=== PATIENT | female | born 1935 | race Caucasian/White ===

== ENCOUNTER 2017-04-25 14:51 | Emergency (ER) | payer MEDICARE, OTHER ==
--- NOTE | 2017-04-25 15:41 | CT ---
CT OF BRAIN PERFORMED WITHOUT CONTRAST ENHANCEMENT: 04/25/17 HISTORY: Altered mental status. Generalized ventricular and sulcal prominence with decreased attenuation of the periventricular white matter consistent with some chronic white matter change. There is no signs of intracerebral hemorrha ge or extra-axial fluid collections. Mastoid air cells and visualized sinuses are clear. IMPRESSION: No acute intracranial abnormalities. POS: [facility]
[2017-04-25 16:05] LABS: #Eosinphils 0.1 thou/uL (0.0-0.7); #Lymphocytes 0.4 thou/uL (1.20-3.40); #Monocytes 0.6 thou/uL (0.11-0.59); #Neutrophils 3.4 thou/uL (1.40-6.50); %Eosinophils 1.9 % (0.0-10.0); %Lymphocytes 9.2 % (21.0-51.0); %Monocytes 12.5 % (0.0-10.0); Hematocrit 43.8 % (36.0-47.0); Mean Platelet Volume 8.4 fL (7.4-10.4); Red Blood Cell (RBC) Count 4.32 mill/uL (4.20-5.40); White Blood Cell (WBC) Count 4.4 thou/uL (4.8-10.8)
[2017-04-25 16:27] LABS: ALT (SGPT) 23 U/L (8-55); AST (SGOT) 21 U/L (5-34); Alkaline Phosphatase 51 U/L (40-150); Anion Gap 11 mmol/L (10-20); BUN (Urea Nitrogen) 16 mg/dL (9.8-20.1); Bilirubin, Total 0.3 mg/dL (0.2-1.2); Calc. Creatinine Clearance 0 mL/min (70-130); Calcium 9.5 mg/dL (7.8-10.44); Carbon Dioxide 29 mmol/L (23-31); Chloride 103 mmol/L (98-107); Estimated GFR-MDRD 76; Globulin 2.6 g/dL (2.4-3.5); Protein, Total 6.6 g/dL (6.0-8.3)
[2017-04-25 16:31] LABS: Troponin I Less than 0.010 ng/mL (< 0.028)
[2017-04-25 16:56] LABS: Bilirubin Negative (Negative); Blood, Urine Negative (Negative); Glucose, Urine (Dipstick) Negative (Negative); Ketone, Urine Negative (Negative); Nitrite Negative (Negative); Protein, Urine (Dipstick) Negative (Neg-Trace)
== END 2017-04-25 18:06 | disposition home or self-care (01) ==
LOC: ERS 14:51
DX: R41.82 Altered mental status, unspecified (principal); E78.5 Hyperlipidemia, unspecified; F32.9 Major depressive disorder, single episode, unspecified; F41.9 Anxiety disorder, unspecified; G30.9 Alzheimer's disease, unspecified; F02.80 Dementia in other diseases classified elsewhere, unspecified severity, without behavioral disturbance, psychotic disturbance, mood disturbance, and anxiety; K21.9 Gastro-esophageal reflux disease without esophagitis
CPT/HCPCS: 51701; 70450; 80053; 81003; 82553; 84484; 85025; 93005; A4353

== ENCOUNTER 2017-10-10 22:09 | Inpatient (IN) | payer MEDICARE, OTHER ==
[2017-10-10 22:56] LABS: #Lymphocytes 0.5 thou/uL (1.20-3.40); #Monocytes 0.7 thou/uL (0.11-0.59); #Neutrophils 8.1 thou/uL (1.40-6.50); %Basophils 0.1 % (0.0-1.0); %Eosinophils 0.3 % (0.0-10.0); %Lymphocytes 5.4 % (21.0-51.0); %Monocytes 7.5 % (0.0-10.0); %Neutrophils 86.8 % (42.0-75.0); Hemoglobin 12.4 g/dL (12.0-16.0); Mean Corpuscular Hemoglobin 32.1 pg (27.0-31.0); Mean Corpuscular Volume 97.2 fl (81.0-99.0); Mean Platelet Volume 7.4 fL (7.4-10.4); Platelet Count 203 thou/uL (130-400); Red Blood Cell (RBC) Count 3.86 mill/uL (4.20-5.40); White Blood Cell (WBC) Count 9.4 thou/uL (4.8-10.8)
[2017-10-10 23:02] LABS: PTT 27.6 SEC (22.9-36.1); Prothrombin Time 13.5 SEC (12.0-14.7)
[2017-10-10 23:15] LABS: ALT (SGPT) Less than 7 U/L (8-55); AST (SGOT) 16 U/L (5-34); Albumin 3.3 g/dL (3.4-4.8); Alkaline Phosphatase 58 U/L (40-150); Anion Gap 13 mmol/L (10-20); BUN (Urea Nitrogen) 19 mg/dL (9.8-20.1); Bilirubin, Total 0.4 mg/dL (0.2-1.2); Calc. Creatinine Clearance 0 mL/min (70-130); Calcium 8.8 mg/dL (7.8-10.44); Carbon Dioxide 27 mmol/L (23-31); Chloride 104 mmol/L (98-107); Estimated GFR-MDRD 82; Globulin 2.3 g/dL (2.4-3.5); Glucose 143 mg/dL (83-110); Potassium 3.8 mmol/L (3.5-5.1); Protein, Total 5.6 g/dL (6.0-8.3); Sodium 140 mmol/L (136-145)
--- NOTE | 2017-10-10 23:18 | RAD ---
TWO VIEWS RIGHT HIP: 10/10/17 HISTORY: Found on ground. Pain. Evaluate for possible fracture. COMPARISON: None. FINDINGS: Two views of the right hip demonstrate foreshortening and persistent rotation suggesting a fracture. IMPRESSION: Probable right hip fracture. POS: [facility]
--- NOTE | 2017-10-10 23:23 | CT ---
HEAD CT WITHOUT CONTRAST: 10/10/17 COMPARISON: 04/25/17. HISTORY: Fall. Pain. Evaluate for fracture. TECHNIQUE: Noncontrast head CT is performed from skull base to skull vertex. FINDINGS: No parenchymal hemorrhage. No extra-axial hematoma. No midline shift. Basilar cisterns are patent. Ag e appropriate atrophy. Cortical bailey-white matter differentiation is preserved. Prominence of ventricular system is in keeping with the overall degree of atrophy. Chronic small vess el ischemic change are identified. Remote insult to the medial aspect of the right occipital lobe is noted with resultant malacic change, similar to the previous examination. Calvarium is intact. Adequate aeration of the sinuses and mastoid air cells. Probable arachnoid cyst in the anterior aspect of the left middle cranial fossa, unchanged. IMPRESSION: 1. Age appropriate atrophy. Chronic small vessel ischemic change of the white matter. 2. No intracranial posttraumatic sequela. POS: [facility]
--- NOTE | 2017-10-10 23:30 | CT ---
CT CERVICAL SPINE WITHOUT CONTRAST 10/10/17 HISTORY: Fall. Pain. COMPARISON: None. TECHNIQUE: CT cervical spine is performed without contrast. Reformatted images are submitted for interpretation. FINDINGS: There is no prevertebral soft tissue swelling. No epidural hematoma. There are varying degrees of jose tral canal stenosis and foraminal narrowing on the basis of degenerative change. There is a hypodens ity with a punctate calcification that is in the right subarticular zone. This lesion (5 mm) appears to be extradural in location and may represent a small focus of disc material. Evaluation is limited on this exam. The possibility of a small meningioma cannot be excluded given the presence of calcific ation. Mildly heterogeneous thyroid gland is noted. Upper mediastinum and lung apices are unremarkable. Lateral masses of C1 and C2 articular appropriately. Appropriate articulation of the facets. Odontoid process is intact. There is anterolisthesis of C3 upon C4, C4 upon C5 which is felt to be due to degenerative change. Th ere is fusion of the facets on the right at C2 and C3, likely chronic. Cervical spine vertebral body height is maintained. There is no fracture. IMPRESSION: 1. No cervical spine fracture. 2. Varying degrees of foraminal stenosis due to degenerative change. Evaluation is limited by melita webber. At the C5-C6 level, there is a hypodensity with punctate calcifications of the right subarti cular zone. Differential considerations include a disc fragment versus a partially calcified epidural meningioma. Better interrogation with nonemergent cervical spine MRI is recommended. 3. No evidence of cervical spine fracture. POS: [facility]
--- NOTE | 2017-10-10 23:32 | CT ---
RIGHT SHOULDER CT WITHOUT CONTRAST: 10/10/17 HISTORY: Fall. Fracture. COMPARISON: None. FINDINGS: There is a mildly displaced fracture involving the greater tuberosity of the right shoulder. Degenera tive change with osteophyte formation along the articular surface of the humeral head is noted. No ev idence of dislocation. Scaphoid bone appears to be intact. The visualized right ribs are intact. The visualized right hemithorax is also unremarkable. IMPRESSION: Fracture involving the proximal right humerus without evidence of glenohumeral dislocation. POS: [facility]
[2017-10-11] MEDS ORDERED: Dextrose 50% Abboject 50 ML SYRINGE SLOW IVP PRN (01:20)
[2017-10-11] MEDS ORDERED: Ondansetron HCl/PF 4 MG/2 ML Vial IVP PRN ×2 (01:20→11:24)
[2017-10-11] MEDS ORDERED: Ondansetron ODT 4 MG TAB PO PRN (01:20)
[2017-10-11] MEDS ORDERED: Dextrose 5% in Water 1,000 ML IV PRN (01:20)
[2017-10-11] MEDS ORDERED: hydrALAZINE 20 MG/ML VIAL SLOW IVP PRN (01:20)
[2017-10-11] MEDS: Acetaminophen 1,000 MG in Premix Bag 1 BAG IVPB SCH ×4 (03:42→21:10)
[2017-10-11] MEDS: Ketorolac Tromethamine 30 MG/ML VIAL IVP SCH ×4 (03:42→21:11)
[2017-10-11] MEDS: Sodium Chloride 0.9% 1,000 ML IV SCH ×4 (03:43→22:39)
--- NOTE | 2017-10-11 04:42 | HP ---
DATE OF ADMISSION: 10/11/2017 REQUESTING PHYSICIAN: Clayton Montemayor MD ATTENDING SURGEON: Antoni Hernandez M.D. CONSULTATIONS: Orthopedics, Dr. Harris. HISTORY OF PRESENT ILLNESS: The patient is an 82-year-old, woman, who resides at a nursing facility specifically facility for dementia patients in [place]. She reportedly fell sometime toda y. Nursing staff was able to obtain x-rays that showed a proximal humerus fracture on the right, and a right subcapital proximal femur fracture. They were able to re-transportation from their facility to our facility where she underwent evaluation and examination and noted to have these injuries, at which time, we were asked to admit the patient and obtain orthopedic consultation. There is no repor ellen loss of consciousness, though the history from the patient is very scattered and not very reliabl e, the daughter who is at bedside says that she was told that the patient did not hit her head or los e consciousness. Daughter states that the patient normally ambulates without a walker. She will amb ulate the hallways holding onto the side rail, but she has noticed that her gait has changed over the past few months. ALLERGIES: BONIVA and LIPITOR. CURRENT MEDICATIONS: Tylenol, Aricept, Cymbalta, Namenda, Risperdal, vitamin B, vitamin D, Zetia, ra nitidine, loperamide, Zofran, and simethicone. PAST MEDICAL HISTORY: Significant for gastroesophageal reflux disease, hyperlipidemia, and Alzheimer 's disease, also anxiety and depression. PAST SURGICAL HISTORY: Colon polyp removal. SOCIAL HISTORY: Daughter states that the patient does not use tobacco, alcohol or drugs. She reside s in a nursing facility. REVIEW OF SYSTEMS: A 10-point review of system is negative, unless otherwise stated. PHYSICAL EXAMINATION: VITAL SIGNS: Blood pressure 92/56, heart rate 72, respirations 16, oxygen saturation 93% on room air , and temperature is 98.7. GENERAL: The patient is resting comfortably in bed. She will respond to verbal stimuli. She is cur rently oriented to person only. The daughter states this is her baseline, though sometimes she is fa irly confusing, will not even recognize her. Warner coma scale is E3 V4 M6. HEENT: Head is normocephalic, atraumatic. Eyes: Extraocular motion intact. PERRLA bilaterally. L eft pupil appears to be somewhat more dilated than the right. Again, the daughter believes that this is a chronic condition. Ears are atraumatic without discharge. Nose atraumatic without discharge. Oropharynx is clear. NECK: Nontender. Trachea is midline. No JVD. CHEST: Clear to auscultation with moderate inspiratory and expiratory effort. HEART: Regular rate and rhythm. ABDOMEN: Soft, flat, nontender with active bowel sounds. Pelvis is stable with tender to palpation to her right hip consistent with her fracture. EXTREMITIES: Tenderness to palpation in the right shoulder, again consistent with her fracture. She is neurovascularly intact x4 distally in all extremities. Her pulses are 2+. Capillary refill is l ess than 3 seconds. LABORATORY DATA: White blood cell count 9.4, hemoglobin 12.4, hematocrit 37.5, platelets 203. Sodiu m 140, potassium 3.8, CO2 of 27, BUN 19, creatinine 0.68, glucose 143. LFTs are unremarkable. PT 14 , PTT 28, INR 1.0. RADIOGRAPHIC FINDINGS: CT of the brain without contrast shows no intracranial post-traumatic sequela . CT of the C-spine shows no cervical spine fractures. CT of the right upper extremity shows a frac ture involving the right proximal humerus without evidence of glenohumeral dislocation. Specifically , there is a mildly displaced fracture fragment involving the greater tuberosity. Radiographs of the right hip show probable right hip fracture. ASSESSMENT: 1. Status post fall. 2. Right proximal humerus fracture. 3. Right proximal femur fracture. 4. Alzheimer's/dementia. 5. Pain secondary to trauma. PLAN: Plan will be to admit the patient to the surgical floor, make the patient n.p.o. after midnigh t, and await surgical evaluation by Orthopedics in the morning. The evaluation, examination, laborat ory, and radiographic findings will be discussed with Dr. Hernandez after this dictation.
[2017-10-11 05:10] LABS: #Eosinphils 0.2 thou/uL (0.0-0.7); #Lymphocytes 0.8 thou/uL (1.20-3.40); #Monocytes 0.9 thou/uL (0.11-0.59); #Neutrophils 7.9 thou/uL (1.40-6.50); %Basophils 0.1 % (0.0-1.0); %Eosinophils 2.4 % (0.0-10.0); %Lymphocytes 8.3 % (21.0-51.0); %Monocytes 9.1 % (0.0-10.0); %Neutrophils 80.2 % (42.0-75.0); Hemoglobin 12.6 g/dL (12.0-16.0); Mean Corpuscular HGB CONC 33.1 g/dL (32.0-36.0); Mean Corpuscular Hemoglobin 32.4 pg (27.0-31.0); Mean Corpuscular Volume 97.8 fl (81.0-99.0); Mean Platelet Volume 8.3 fL (7.4-10.4); Platelet Count 137 thou/uL (130-400); RBC Distribution Width 12.2 % (11.5-14.5); Red Blood Cell (RBC) Count 3.89 mill/uL (4.20-5.40); White Blood Cell (WBC) Count 9.8 thou/uL (4.8-10.8)
[2017-10-11 05:24] LABS: Anion Gap 13 mmol/L (10-20); BUN (Urea Nitrogen) 16 mg/dL (9.8-20.1); Calc. Creatinine Clearance 51 mL/min (70-130); Calcium 8.4 mg/dL (7.8-10.44); Carbon Dioxide 22 mmol/L (23-31); Chloride 108 mmol/L (98-107); Estimated GFR-MDRD Greater than 90; Glucose 106 mg/dL (83-110); Potassium 4.5 mmol/L (3.5-5.1); Sodium 138 mmol/L (136-145)
[2017-10-11] MEDS ORDERED: CEFAZOLIN/Water 2 GM/20 ML SYRINGE SLOW IVP SCH (06:30)
--- NOTE | 2017-10-11 08:07 | RAD ---
RIGHT SHOULDER 3 VIEWS: Date: 10/11/17 HISTORY: Right shoulder pain. FINDINGS/IMPRESSION: There is a fracture involving the greater tuberosity of the right humerus without significant displac ement. POS: [facility]
[2017-10-11] MEDS: Famotidine 20 MG TAB PO SCH ×2 (08:36→22:00)
--- NOTE | 2017-10-11 08:48 | CON ---
DATE OF CONSULTATION: 10/11/2017 HISTORY OF PRESENT ILLNESS: We were asked by ER and Trauma to see the patient. Patient is a [age]-year-old female who resides in a nursing facility. Unfortunately, she has significant Alzheimer an d dementia that has recently more so started to affect her gait. She fell sometime yesterday and was brought into the hospital last night, found to have a right proximal femur fracture, very well align ed. The patient is quite somnolent and unable to give much information or history. She had a restfu l night per daughter who is at the bedside and she was also giving this patient's history. The patie nt currently is resting in bed in no acute distress. Nurses stated she does speak and in oriented fa shion. PAST MEDICAL HISTORY: Positive for GERD, Alzheimer, dementia. Family says she has some anxiety and depression. It is worsened with the disease also. PAST SURGICAL HISTORY: Colon polyp. SOCIAL HISTORY: Resides in a fpc facility in [place], good family involvement. No alco hol or nicotine products. ALLERGIES: BONIVA and LIPITOR. CURRENT MEDICATIONS: Acetaminophen, Aricept, Cymbalta, Namenda, Risperdal, vitamin B complex, vitami n D3, Zetia, ranitidine, BioFreeze topical , loperamide, Zofran and simethicone. REVIEW OF SYSTEMS: Unobtainable due to patient's mentation. PHYSICAL EXAMINATION: GENERAL: Female, resting in bed in no acute distress. Very thin. HEENT: Face is symmetric. NECK: Supple, trachea midline. LOWER EXTREMITIES: Pulses intact. Good cap refill. ASSESSMENT: 1. Fall due to either off balance or dementia, Alzheimer's. 2. Right proximal femur fracture. PLAN: I spoke with daughter. She is amenable to go forth with surgery, as it has been explained, it will be percutaneous screws fixation. 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 We discussed x-rays, postop care. She will be with us through the weekend d efinitely and then we will probably need to get back to her skilled facility. We will get the case m anagement involved and then physical therapy, occupational therapy post-surgical procedure. This is Clayton Damon PA-C dictating for Dr. Jorgito Harris.
[2017-10-11] MEDS ORDERED: Prevnar 13-Val Conj/PF 0.5 ML SYRINGE IM ONE (09:00)
[2017-10-11] MEDS ORDERED: Fentanyl 100 MCG/2 ML VIAL ONE (10:10)
[2017-10-11] MEDS ORDERED: CEFAZOLIN/Water 2 GM/20 ML SYRINGE ONE (10:14)
[2017-10-11] MEDS ORDERED: Preparation H Ointment 28 GM TUBE PR PRN (10:41)
[2017-10-11] MEDS ORDERED: Simethicone Chewable 80 MG TAB PO PRN (10:41)
[2017-10-11] MEDS ORDERED: MENTHOL TOP PRN (10:41)
[2017-10-11] MEDS ORDERED: Loperamide HCl 2 MG CAP PO PRN (10:54)
--- NOTE | 2017-10-11 11:47 | OP ---
DATE OF PROCEDURE: 10/11/2017 PROCEDURE PERFORMED: Right femoral neck fracture, percutaneous screw fixation. PREOPERATIVE DIAGNOSIS: Nondisplaced femoral neck fracture. POSTOPERATIVE DIAGNOSIS: Nondisplaced femoral neck fracture. COMPLICATIONS: None. ESTIMATED BLOOD LOSS: Minimal. SURGEON: Wil Tipton M.D. ANESTHESIA: General. INDICATIONS: Ms. Kelly is an elderly female who fell. She sustained a valgus impacted femoral neck fracture. She was indicated for percutaneous screw fixation to provide stability and allow mobiliza tion. Goal of surgery is to promote early mobilization and prevent complications of prolonged bed re st. Risks have been reviewed in detail. The patient and her family have elected to proceed with the operation. IMPLANTS: Synthes 7.3 mm cannulated screws x3. DESCRIPTION OF PROCEDURE: Ms. Albrecht was identified in the preoperative holding area. Her correct extremity was marked. She was carried to the operating room. She was positioned supine. General an esthesia was induced. A multidisciplinary timeout was performed. The right lower extremity was prep ped and draped in sterile fashion. We began the procedure with intraoperative evaluation of the femoral neck fracture. We pulled gentle traction. At this point, we prepped and draped the right lower extremity. We then made a small inc ision over the lateral femur. We dissected down through the subcutaneous tissues. A guidewire was t hen introduced using intraoperative x-ray in the inferior position of the femoral neck. This was skyler margie using orthogonal views. We then placed 2 additional guidewires in an inverted triangle pattern. At this point, we overdrilled our guidewires and measured length. We then placed 7.3 mm cannulated screws appropriately. These were imaged. We irrigated and then closed with 2-0 Vicryl suture follow ed by giselle for the skin. A sterile dressing was applied.
[2017-10-11 13:22] LABS: Bilirubin Negative (Negative); Blood, Urine Moderate (Negative); Clarity CLEAR (Clear); Glucose, Urine (Dipstick) Negative (Negative); Leukocyte Negative (Negative); Nitrite Negative (Negative); Protein, Urine (Dipstick) Negative (Neg-Trace); Specific Gravity, Urine 1.017 (1.002-1.036); Urobilinogen 0.2 mg/dL (0.2-1.0); pH, Urine 6.5 (5.0-9.0)
[2017-10-11 13:26] LABS: Bacteria/HPF None Seen HPF (None Seen); Hyaline Casts/LPF 0-3 HYALINE CAST LPF (0-3 Hyaline); Pathc Cast-AUWi Flag 0.29 (0-2.49); Squamous Epithelial 0-3 HPF (0-3); WBC/HPF 0-3 HPF (0-3)
[2017-10-11 13:40] VITALS: BMI 18.8
--- NOTE | 2017-10-11 13:49 | RAD ---
INTRAOPERATIVE FLUOROSCOPY: Date: 10/11/17 HISTORY: Open reduction and internal fixation right hip. EXPOSURE: 35.8 seconds. 2.76 mGy*cm^2. FINDINGS: Four intraoperative fluoroscopic views are submitted for interpretation. There are three pins that tr averse the right hip. Irregularity due to fracture is noted. Alignment is near anatomic. IMPRESSION: Fluoroscopy as above. POS: [facility]
[2017-10-11] MEDS ORDERED: Acetaminophen 325 MG TAB PO PRN (16:47)
[2017-10-11] MEDS ORDERED: Glycopyrrolate 0.2 MG/ML 5 ML SYRINGE ONE (17:45)
[2017-10-11] MEDS ORDERED: Lidocaine 1% PF 5 ML VIAL ONE (17:45)
[2017-10-11] MEDS ORDERED: PHENYLEPHRINE-NS 100 MCG/ML 10 ML SYRINGE ONE (17:45)
[2017-10-11] MEDS ORDERED: Ondansetron HCl/PF 4 MG/2 ML Vial ONE (17:45)
[2017-10-11] MEDS ORDERED: PROPOFOL 200 MG/20 ML VIAL ONE (17:45)
[2017-10-11] MEDS ORDERED: ePHEDrine/0.9% NaCl/PF SYRINGE 50 mg/10 ml ONE (17:45)
--- NOTE | 2017-10-11 18:37 | PRG ---
DATE OF SERVICE: 10/11/2017 SUBJECTIVE: The patient is currently on the surgical floor. She is hospital day #2 and recently pos top from a percutaneous screw placement of a right hip fracture. The patient tolerated this procedur e well. There were no reported issues overnight or during the surgery. PHYSICAL EXAMINATION: VITAL SIGNS: Temperature is 96.6, heart rate 59, blood pressure 129/61, respirations 15, oxygen satu ration 96% on room air. GENERAL: The patient is resting comfortably in bed. She appears in no distress. She is currently s leeping. She will respond somewhat to verbal stimuli, though due to her advanced dementia this seem to scare her more than anything. The daughter at bedside reports that when she was awake, she appear ed to be at baseline. She has not eaten yet. HEENT: Unremarkable. LUNGS: Clear to auscultation with moderate inspiratory and expiratory effort. HEART: Regular rate and rhythm. ABDOMEN: Soft, flat, nontender with hypoactive bowel sounds. Postop dressing is clean, dry, and int act. EXTREMITIES: Neurovascularly intact. LABORATORY DATA: White blood cell count 9.8, hemoglobin 12.6, hematocrit 38.0, platelets 137. Sodiu m 138, potassium 4.5, chloride 108, CO2 of 22, BUN 16, creatinine 0.62, glucose 106. There are no ra diographs to review this morning. ASSESSMENT AND PLAN: 1. Status post ground level fall. 2. Right greater tuberosity fracture, right humerus. 3. Right femoral neck fracture, status post percutaneous screw fixation. 4. Alzheimer/dementia. 5. Acute pain secondary to trauma. Plan will be to continue supportive care. Resume home meds, await physical and occupational therapy and placement decision. The patient's daughter reports that she has called and the patient has alrea dy been accepted back to [facility]. The evaluation and examination were done with Dr. Cruz during r ounds this morning.
[2017-10-11] MEDS: Acetaminophen 500 MG TAB PO SCH (21:12)
[2017-10-11] MEDS: Donepezil HCl 10 MG TAB PO SCH (22:00)
[2017-10-11] MEDS: DULoxetine 60 MG CAP PO SCH (22:00)
[2017-10-11] MEDS: Senokot S 8.6-50 MG TAB PO SCH (22:00)
[2017-10-11] MEDS: risperiDONE 0.25 MG TAB PO SCH (22:00)
[2017-10-11] MEDS: Aspirin 81 mg Enteric Coated Tablet PO SCH (22:00)
[2017-10-12] MEDS: Ketorolac Tromethamine 30 MG/ML VIAL IVP SCH (02:39)
[2017-10-12] MEDS: Acetaminophen 1,000 MG in Premix Bag 1 BAG IVPB SCH (02:39)
[2017-10-12] MEDS: Ezetimibe 10 MG TAB PO SCH (08:04)
[2017-10-12] MEDS: Stress 600 With Zinc 1 TAB PO SCH (08:04)
[2017-10-12] MEDS: Senokot S 8.6-50 MG TAB PO SCH ×2 (08:04→21:03)
[2017-10-12] MEDS: Polyethylene Glycol 3350 17 GM Packet PO SCH (08:04)
[2017-10-12] MEDS: Famotidine 20 MG TAB PO SCH ×3 (08:04→21:02)
[2017-10-12] MEDS: Acetaminophen 500 MG TAB PO SCH ×3 (08:05→21:01)
[2017-10-12] MEDS: Aspirin 81 mg Enteric Coated Tablet PO SCH ×2 (08:05→21:02)
[2017-10-12] MEDS ORDERED: FOLIC PO SCH (09:00)
[2017-10-12] MEDS ORDERED: VIT B COMP PO SCH (09:00)
[2017-10-12] MEDS ORDERED: [UNRECOGNIZED DRUG - OTHER] PO SCH (09:00)
[2017-10-12] MEDS ORDERED: VIT E PO SCH (09:00)
[2017-10-12] MEDS ORDERED: IRON PO SCH (09:00)
[2017-10-12] MEDS ORDERED: traMADol HCl 50 MG TAB PO PRN (10:01)
[2017-10-12] MEDS: traMADol HCl 50 MG TAB PO PRN ×2 (11:31→16:56)
--- NOTE | 2017-10-12 12:02 | PRG ---
DATE OF SERVICE: 10/12/2017 ATTENDING PHYSICIAN: Dr. Mike Cruz. SUBJECTIVE: Ms. Albrecht is an 82-year-old female, who had a ground-level fall with subsequent right hip and right humerus fracture. She is postoperative day #1, status post ORIF of the right hip. The humerus fracture will be nonoperative. She is seen on the surgical floor this morning. Pain is wel l controlled. She has started working with physical and occupational therapy. OBJECTIVE: VITAL SIGNS: Temperature 98.3, pulse 67, respirations 14, O2 sat 93% on room air, blood pressure 126 /74. GENERAL: Elderly female lying in bed in no acute distress. HEENT: Contusion and ecchymosis over the lateral aspect of right eyebrow and right temporal area. O therwise, atraumatic and normocephalic. PULMONARY: Bilateral breath sounds clear. No respiratory distress. Chest movement symmetrical. CARDIOVASCULAR: Regular rate and rhythm. Heart sounds normal. ABDOMEN: Soft, flat, nontender, nondistended. Normal bowel sounds. EXTREMITIES: Neurovascularly intact in all extremities. Cap refill brisk in all lower extremities. NEUROLOGIC: GCS is 14, E4 V4 M6. LABORATORY DATA: None. ASSESSMENT: 1. Status post ground-level fall. 2. Right greater tuberosity fracture, right humerus. 3. Right femoral neck fracture, status post percutaneous screw fixation. 4. History of Alzheimer's dementia, present on admission. 5. Acute traumatic pain. PLAN: 1. I will continue mobilizing with physical and occupational therapy. 2. Encourage incentive spirometer. 3. Case management for discharge planning. Referral has been made to [facility]. The patient to be discharged [facility] when their acceptance gained. 4. Continue oral analgesia. The patient was reviewed with Dr. Cruz, who agrees with the plan.
[2017-10-12] MEDS: Ibuprofen 600 MG TAB PO SCH ×2 (15:19→21:03)
[2017-10-12] MEDS: Donepezil HCl 10 MG TAB PO SCH (21:02)
[2017-10-12] MEDS: DULoxetine 60 MG CAP PO SCH (21:02)
[2017-10-12] MEDS: risperiDONE 0.25 MG TAB PO SCH (21:03)
[2017-10-13] MEDS: Acetaminophen 500 MG TAB PO SCH ×4 (02:21→20:52)
[2017-10-13] MEDS: traMADol HCl 50 MG TAB PO PRN (02:21)
[2017-10-13] MEDS: Ibuprofen 600 MG TAB PO SCH ×3 (05:46→20:51)
[2017-10-13] MEDS: Famotidine 20 MG TAB PO SCH ×3 (09:12→20:52)
[2017-10-13] MEDS: Ezetimibe 10 MG TAB PO SCH (09:12)
[2017-10-13] MEDS: Senokot S 8.6-50 MG TAB PO SCH ×2 (09:12→20:53)
[2017-10-13] MEDS: Aspirin 81 mg Enteric Coated Tablet PO SCH ×2 (09:12→20:51)
[2017-10-13] MEDS: Stress 600 With Zinc 1 TAB PO SCH (09:15)
[2017-10-13] MEDS: Polyethylene Glycol 3350 17 GM Packet PO SCH (09:16)
--- NOTE | 2017-10-13 12:07 | PRG ---
DATE OF SERVICE: 10/13/2017 SUBJECTIVE: The patient is status post ground level fall in which she sustained a right hip fracture and right greater tuberosity fracture of her humerus. The patient underwent percutaneous pinning of her hip fracture and she tolerated this well. She does complain of some right shoulder pain, but ot herwise there have been no issues overnight. The daughter states that she had a small amount for [employer] and is at her baseline mentally. OBJECTIVE: VITAL SIGNS: Temperature is 98.6, heart rate 71, blood pressure 147/83, respirations 14, oxygen satu ration 91% on room air. GENERAL: The patient is resting comfortably in bed. She is awake and will respond to verbal stimuli . Also, again appears confused and will have random thoughts, this again appears to be her baseline. She will follow some very simple commands. HEENT: Unremarkable. LUNGS: Clear to auscultation with good inspiratory and expiratory effort. HEART: Regular rate and rhythm. ABDOMEN: Soft, flat, nontender with active bowel sounds. EXTREMITIES: Neurovascularly intact x4. Postop dressing is clean, dry, and intact. LABORATORY DATA: There are no labs or radiographs to review this morning. ASSESSMENT AND PLAN: 1. Status post ground level fall. 2. Right greater tuberosity fracture, right humerus. 3. Right femoral neck fracture, status post percutaneous screw fixation. 4. Alzheimer's/dementia. PLAN: Continue supportive care and await placement decision. Per the daughter, the patient has been accepted to [facility] and she wishes this to be the case. The evaluation and examination were discu ssed with Dr. Cruz at rounds this morning.
[2017-10-13] MEDS: DULoxetine 60 MG CAP PO SCH (20:51)
[2017-10-13] MEDS: risperiDONE 0.25 MG TAB PO SCH (20:51)
[2017-10-13] MEDS: Donepezil HCl 10 MG TAB PO SCH (20:52)
[2017-10-14] MEDS: traMADol HCl 50 MG TAB PO PRN ×2 (02:03→14:36)
[2017-10-14] MEDS: Acetaminophen 500 MG TAB PO SCH ×3 (02:04→14:42)
[2017-10-14] MEDS: Ibuprofen 600 MG TAB PO SCH ×2 (05:43→14:41)
[2017-10-14] MEDS: Senokot S 8.6-50 MG TAB PO SCH (11:56)
[2017-10-14] MEDS: Famotidine 20 MG TAB PO SCH ×2 (11:56)
[2017-10-14] MEDS: Stress 600 With Zinc 1 TAB PO SCH (11:57)
[2017-10-14] MEDS: Ezetimibe 10 MG TAB PO SCH (12:15)
[2017-10-14] MEDS: Aspirin 81 mg Enteric Coated Tablet PO SCH (12:15)
[2017-10-14] MEDS: Polyethylene Glycol 3350 17 GM Packet PO SCH (12:16)
[2017-10-14 12:36] VITALS: BP 151/80; TEMP 97.8
== END 2017-10-14 15:28 | DRG 481 ==
LOC: ERS 22:09 → SURG A 23:50
PROVIDERS: ADMIT Specialist; ATTEND Specialist
PROC: 0QS634Z Reposition Right Upper Femur with Internal Fixation Device, Percutaneous Approach (ICD-10-PCS; principal; 2017-10-11)
DX: S72.011A Unspecified intracapsular fracture of right femur, initial encounter for closed fracture (principal); S42.251A Displaced fracture of greater tuberosity of right humerus, initial encounter for closed fracture; W19.XXXA Unspecified fall, initial encounter; G30.9 Alzheimer's disease, unspecified; F02.80 Dementia in other diseases classified elsewhere, unspecified severity, without behavioral disturbance, psychotic disturbance, mood disturbance, and anxiety; K21.9 Gastro-esophageal reflux disease without esophagitis; F41.9 Anxiety disorder, unspecified; F32.9 Major depressive disorder, single episode, unspecified; E78.5 Hyperlipidemia, unspecified; G89.11 Acute pain due to trauma; Z86.010 Personal history of colon polyps; Y92.129 Unspecified place in nursing home as the place of occurrence of the external cause; Z88.8 Allergy status to other drugs, medicaments and biological substances; Z79.899 Other long term (current) drug therapy
CPT/HCPCS: 36415; 36416; 70450; 72125; 76001; 80048; 80053; 81001; 85025; 85610; 85730; 86850; 86900; 86901; 87086; 90471; 90670; 93005; C1713; C1769; G0009; G0390; G8978-GP-CN; G8979-GP-CL; G8987-GO-CM; G8988-GO-CJ; J0131; J1885; J2001; J2405; J2704; J3010; Q0162

== ENCOUNTER 2017-10-22 15:12 | Emergency (ER) | payer MEDICARE, OTHER ==
[2017-10-22 16:26] LABS: #Eosinphils 0.2 thou/uL (0.0-0.7); #Lymphocytes 0.9 thou/uL (1.20-3.40); #Monocytes 0.6 thou/uL (0.11-0.59); %Basophils 0.5 % (0.0-1.0); %Eosinophils 2.4 % (0.0-10.0); %Monocytes 7.6 % (0.0-10.0); %Neutrophils 78.5 % (42.0-75.0); Hemoglobin 12.2 g/dL (12.0-16.0); Mean Corpuscular HGB CONC 33.4 g/dL (32.0-36.0); Mean Corpuscular Hemoglobin 32.7 pg (27.0-31.0); Mean Corpuscular Volume 97.8 fl (81.0-99.0); Mean Platelet Volume 6.7 fL (7.4-10.4); Platelet Count 430 thou/uL (130-400); RBC Distribution Width 13.1 % (11.5-14.5); Red Blood Cell (RBC) Count 3.75 mill/uL (4.20-5.40); White Blood Cell (WBC) Count 7.7 thou/uL (4.8-10.8)
[2017-10-22 16:51] LABS: ALT (SGPT) Less than 7 U/L (8-55); AST (SGOT) 18 U/L (5-34); Albumin 3.7 g/dL (3.4-4.8); Alkaline Phosphatase 125 U/L (40-150); Anion Gap 15 mmol/L (10-20); BUN (Urea Nitrogen) 28 mg/dL (9.8-20.1); Bilirubin, Total 0.5 mg/dL (0.2-1.2); CK (CPK) 43 U/L (29-168); Calc. Creatinine Clearance 0 mL/min (70-130); Calcium 9.2 mg/dL (7.8-10.44); Carbon Dioxide 27 mmol/L (23-31); Chloride 105 mmol/L (98-107); Estimated GFR-MDRD 80; Globulin 2.8 g/dL (2.4-3.5); Glucose 148 mg/dL (83-110); Potassium 3.9 mmol/L (3.5-5.1); Protein, Total 6.5 g/dL (6.0-8.3); Sodium 143 mmol/L (136-145)
[2017-10-22 16:55] LABS: CKMB 1.2 ng/mL (0-6.6); Troponin I Less than 0.010 ng/mL (< 0.028)
--- NOTE | 2017-10-22 17:18 | RAD ---
TWO VIEWS OF THE RIGHT HEEL 10/22/17 INDICATIONS: History of fall with right heel pain. FINDINGS: There is enthesopathic change off the calcaneus. No definite acute fracture or subluxation is evident . IMPRESSION: No acute osseous abnormality. POS: [facility]
--- NOTE | 2017-10-22 17:20 | RAD ---
THREE VIEWS OF THE RIGHT SHOULDER: 10/22/17 INDICATION: Fall. FINDINGS: There is an at least three part proximal humerus fracture with mild displacement of the fracture frag ment. No dislocation is evident. There is mild AC joint osteoarthrosis. Visualized right lung is alexei r. IMPRESSION: Three part proximal humerus fracture of the right shoulder. POS: [facility]
--- NOTE | 2017-10-22 17:47 | RAD ---
TWO VIEWS OF THE RIGHT HIP 10/22/17 COMPARISON: 10/10/17 HISTORY: Pain. FINDINGS: There are three cannulated lag screws traversing a previously noted fracture of the femoral neck on t he right. No evidence for hardware failure. No evidence for dislocation of the right hip. Multiple clips are noted in the pelvis. IMPRESSION: Postoperative changes as above. No evidence for dislocation or hardware failure. POS: [facility]
== END 2017-10-22 17:54 | disposition home or self-care (01) ==
LOC: ERS 15:12
DX: M25.511 Pain in right shoulder (principal); K21.9 Gastro-esophageal reflux disease without esophagitis; E78.5 Hyperlipidemia, unspecified; F41.9 Anxiety disorder, unspecified; F32.9 Major depressive disorder, single episode, unspecified; Z79.899 Other long term (current) drug therapy; Z79.82 Long term (current) use of aspirin; W18.30XA Fall on same level, unspecified, initial encounter
CPT/HCPCS: 36415; 80053; 82550; 82553; 84484; 85025; 93005

== ENCOUNTER 2017-11-07 01:01 | Emergency (ER) | payer MEDICARE, OTHER ==
[2017-11-07] MEDS ORDERED: Lidocaine 1% w/Epinephrine 1:100K 20 ML VIAL ONE (02:41)
[2017-11-07 02:50] LABS: Bilirubin Negative (Negative); Blood, Urine Moderate (Negative); Glucose, Urine (Dipstick) Negative (Negative); Leukocyte Negative (Negative); Nitrite Positive (Negative); Protein, Urine (Dipstick) 100 mg/dL (Neg-Trace); Urobilinogen 0.2 mg/dL (0.2-1.0)
[2017-11-07 02:53] LABS: Clarity Cloudy (Clear); RBC/HPF GREATER THAN 50-TNTC HPF (0-3); Renal Epithelial None Seen HPF (0-3); Squamous Epithelial 0-3 HPF (0-3); Transitional Epithelial NONE SEEN HPF (0-3)
[2017-11-07 02:54] LABS: Bacteria/HPF 4+ HPF (None Seen); Crystals/HPF None Seen HPF (Negative); Hyaline Casts/LPF NONE SEEN LPF (0-3 Hyaline); Other Casts/LPF None Seen LPF (0-3 Hyaline); Oval Fat Bodies/HPF None Seen HPF (None Seen); Sperm/HPF None Seen HPF (None Seen); Trichomonas/HPF None Seen HPF (None Seen); Yeast-All Forms None Seen HPF (None Seen)
[2017-11-07] MEDS ORDERED: cefTRIAXone\\ROCEPHIN 1 GM VIAL ONE (04:14)
[2017-11-07] MEDS ORDERED: Lidocaine 1% PF 5 ML VIAL ONE (04:15)
[2017-11-07] MEDS ORDERED: Lidocaine 1% (PF) 30 ML VIAL ONE (04:16)
--- NOTE | 2017-11-07 07:43 | RAD ---
SINGLE VIEW OF THE CHEST: COMPARISON: None. HISTORY: Found on ground at half-way. Hypothermia. FINDINGS: Two views of the chest show a normal-size cardiomediastinal silhouette. Atherosclerotic calcificatio ns are seen in the aorta. There is no evidence of consolidation, mass, or pleural effusion. Degener ative changes are seen in the spine. IMPRESSION: No evidence of acute cardiopulmonary disease. POS: [facility]
--- NOTE | 2017-11-07 08:37 | CT ---
PRELIMINARY REPORT/[facility]/EMERGENTY AFTER-HOURS PROCEDURE CT Head Without Intravenous Contrast CLINICAL HISTORY: 82 years old, female; Injury or trauma; Fall; Initial encounter; Abrasion; Head, generalized; Patient HX: Er1; F82 presents to ed via ems with C/O unwittnessed fall [facility]. Pt reportedly hit her head and has a laceratoin to the l side of her head. Pt is able to answer questions but does not know if loc occurred. Pt is not on any blood thinners TECHNIQUE: Axial computed tomography images of the head/brain without intravenous contrast. COMPARISON: No relevant prior studies available. FINDINGS: Brain: There are confluent areas of hypoattenuation within the periventricular and subcortical white matter compatible with moderate chronic microvascular ischemic change. There is moderate parenchymal volume loss. No hemorrhage. Ventricles: Normal. No ventriculomegaly. Bones/joints: Normal. No acute fracture. Soft tissues: There is a 2.3 x 0.5 cm LEFT lateral scalp hematoma. Sinuses: Unremarkable as visualized. No acute sinusitis. Mastoid air cells: Unremarkable as visualized. No mastoid effusion. IMPRESSION: No acute intracranial hemorrhage. Thank you for allowing us to participate in the care of your patient. Dictated and Authenticated by: Luis Alberto Monique MD 11/07/2017 2:14 AM Central Time ([place] & [place]) FINAL REPORT EMERGENT AFTER HOURS CT OF BRAIN WITHOUT CONTRAST: FINDINGS/IMPRESSION: I agree with the findings and impression given in the preliminary report per [facility] physician. No karen dence of acute intracranial abnormality. POS: [facility]
--- NOTE | 2017-11-07 08:38 | CT ---
PRELIMINARY REPORT/[facility]/EMERGENTY AFTER-HOURS PROCEDURE CT Cervical Spine Without Intravenous Contrast CLINICAL HISTORY: 82 years old, female; Injury or trauma; Fall; Initial encounter; Abrasion; Patient HX: Er1; F82 prese nts to ed via ems with C/O unwittnessed fall while getting up to go to the bathroom. Pt reportedly hi t her head and has a laceratoin to the l side of her head. Pt is able to answer questions but does no t know if loc occurred. Pt is not on any blood thinners TECHNIQUE: Axial computed tomography images of the cervical spine without intravenous contrast. Coronal and sagi ttal reformatted images were created and reviewed. COMPARISON: No relevant prior studies available. FINDINGS: Vertebrae: No acute cervical spine fracture is demonstrated. Discs/spinal canal/neural foramina: The cervical spine demonstrates mild degenerative changes at mult iple levels. The vertebral foramen are grossly intact. No spinal canal stenosis. Soft tissues: Normal. Lung apices: Unremarkable as visualized. IMPRESSION: No acute cervical spine fracture is demonstrated. Thank you for allowing us to participate in the care of your patient. Dictated and Authenticated by: Luis Alberto Monique MD 11/07/2017 2:17 AM Central Time ([place] & [place]) FINAL REPORT CT CERVICAL SPINE NONCONTRAST: DATE: 11/07/17. TIME: Performed on an emergency basis at 0144 hours. HISTORY: Fall. Neck injury. COMPARISON: 10/10/17. FINDINGS: Agree with the preliminary report by Dr. Jennings from [facility]. No acute osseous abnormaliti es are demonstrated. Degenerative changes are apparent. Chronic-type findings are stable. POS: [facility]
== END 2017-11-07 05:01 | disposition home or self-care (01) ==
LOC: ERS 01:01
DX: S01.01XA Laceration without foreign body of scalp, initial encounter (principal); T68.XXXA Hypothermia, initial encounter; K21.9 Gastro-esophageal reflux disease without esophagitis; E78.5 Hyperlipidemia, unspecified; G30.9 Alzheimer's disease, unspecified; F02.80 Dementia in other diseases classified elsewhere, unspecified severity, without behavioral disturbance, psychotic disturbance, mood disturbance, and anxiety; F41.9 Anxiety disorder, unspecified; F32.9 Major depressive disorder, single episode, unspecified; Z79.82 Long term (current) use of aspirin; Z79.899 Other long term (current) drug therapy; W18.30XA Fall on same level, unspecified, initial encounter; Y92.129 Unspecified place in nursing home as the place of occurrence of the external cause
CPT/HCPCS: 12001; 51701; 70450; 71045; 72125; 81003; 81015; 96372; A4353; J0696; J2001

== ENCOUNTER 2017-11-11 13:17 | Emergency (ER) | payer MEDICARE, OTHER ==
[2017-11-11] MEDS ORDERED: Lidocaine 1% (PF) 30 ML VIAL ONE (13:47)
[2017-11-11] MEDS ORDERED: Lorazepam 2 MG/ML VIAL ONE (13:58)
--- NOTE | 2017-11-11 14:36 | RAD ---
3 VIEWS RIGHT INDEX FINGER: Date: 11/11/17 INDICATION: Fall with trauma to the right index finger. 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 There is soft tissue laceration involving the distal tip of the right index finger. There is a mildly comminuted fracture involving the distal tip of the right long finger with some interarticular extension into the DIP joint of the right index finger. There is dif fuse osteopenia. IMPRESSION: Comminuted interarticular distal phalangeal fracture of the right index finger with associated soft t issue laceration. POS: [facility]
[2017-11-11] MEDS ORDERED: Bacitracin Zinc 1 Packet ONE (15:03)
== END 2017-11-11 15:39 | disposition home or self-care (01) ==
LOC: ERS 13:17
DX: S61.210A Laceration without foreign body of right index finger without damage to nail, initial encounter (principal); S62.630A Displaced fracture of distal phalanx of right index finger, initial encounter for closed fracture; F03.90 Unspecified dementia, unspecified severity, without behavioral disturbance, psychotic disturbance, mood disturbance, and anxiety; K21.9 Gastro-esophageal reflux disease without esophagitis; E78.5 Hyperlipidemia, unspecified; E78.00 Pure hypercholesterolemia, unspecified; F41.9 Anxiety disorder, unspecified; F32.9 Major depressive disorder, single episode, unspecified; Z79.899 Other long term (current) drug therapy; Z79.82 Long term (current) use of aspirin; W19.XXXA Unspecified fall, initial encounter
CPT/HCPCS: 12002; 96372; J2001; J2060

== ENCOUNTER 2018-01-13 18:41 | Emergency (ER) | payer MEDICARE, OTHER ==
--- NOTE | 2018-01-13 19:39 | CT ---
CT BRAIN WITHOUT CONTRAST: HISTORY: Head trauma. COMPARISON: 11/07/2017 TECHNIQUE: Multiple contiguous axial images were obtained in a CT of the brain without contrast. FINDINGS: Cerebral atrophy is seen. There are scattered hypodensities in the subcortical and periventricular w jeni matter, likely secondary to small vessel ischemic disease. No large confluent infarction is see n. There is no evidence of hydrocephalus, intracranial hemorrhage, or extraaxial fluid collection. The calvarium and overlying soft tissues are unremarkable. The visualized paranasal sinuses and mast oid air cells are well aerated. IMPRESSION: No evidence of acute intracranial abnormality. POS: [facility]
--- NOTE | 2018-01-13 19:45 | CT ---
CT CERVICAL SPINE WITHOUT CONTRAST: HISTORY: Fell out of wheelchair and hit forehead, with neck pain. COMPARISON: 11/07/2017 TECHNIQUE: Multiple contiguous axial images were obtained in a CT of the cervical spine without contrast. Sagit laci and coronal reformats were performed. FINDINGS: Moderate stable degenerative changes are seen in the cervical spine. The vertebral bodies demonstrat e normal height and alignment without acute fracture or subluxation. No prevertebral soft tissue swe lling is seen. The posterior facets are well aligned. Normal alignment of the skull base with the cervical spine is seen. IMPRESSION: Degenerative changes of the cervical spine without acute osseous abnormality. POS: [facility]
--- NOTE | 2018-01-13 19:54 | RAD ---
RIGHT ELBOW FOUR VIEWS: HISTORY: Right elbow pain after falling out of a wheelchair. COMPARISON: None. FINDINGS: Four views of the right elbow show no evidence of acute fracture or dislocation. No degenerative marbin nges are seen. No elbow effusion is present. IMPRESSION: No evidence of acute osseous abnormality. POS: [facility]
== END 2018-01-13 21:31 | disposition home or self-care (01) ==
LOC: ERS 18:41
DX: S41.111A Laceration without foreign body of right upper arm, initial encounter (principal); S00.83XA Contusion of other part of head, initial encounter; K21.9 Gastro-esophageal reflux disease without esophagitis; E78.5 Hyperlipidemia, unspecified; G30.9 Alzheimer's disease, unspecified; F02.80 Dementia in other diseases classified elsewhere, unspecified severity, without behavioral disturbance, psychotic disturbance, mood disturbance, and anxiety; F41.9 Anxiety disorder, unspecified; F32.9 Major depressive disorder, single episode, unspecified; Z79.899 Other long term (current) drug therapy; Z79.82 Long term (current) use of aspirin; W05.0XXA Fall from non-moving wheelchair, initial encounter
CPT/HCPCS: 70450; 72125